=== PATIENT | male | born 1955 | race Caucasian/White ===

== ENCOUNTER 2020-12-06 15:24 | Emergency (ER) | payer OTHER, MEDICARE, SELFPAY ==
--- NOTE | 2020-12-06 15:32 | ED.FALL ---
HPI - Fall General Chief Complaint: Head Injury Stated Complaint: HEAD INJURY Source: patient Mode of arrival: ambulatory Limitations: no limitations History of Present Illness HPI Narrative: Patient is a 65-year-old male who presents complaining of head injury. Patient reports he was stung by a bee while working under a vehicle. Patient reports sitting up in injuring head. Patient reports then standing up and having possible syncopal episode where he fell. He denies chest pain or shortness of breath. Denies blurred vision. Patient is from [facility] and working in town. He denies all other injuries. He denies significant medical history. Patient denies pain at this time, denies taking [id number] medications prior to arrival. Patient reports that tetanus is up-to-date at this time. MD complaint: fall Related Data Home Medications Medication Instructions Recorded Confirmed alfuzosin [Uroxatral] mg PO 12/06/20 losartan 25 mg PO DAILY 12/06/20 12/06/20 Allergies Allergy/AdvReac Type Severity Reaction Status Date / Time No Known Allergies Allergy Verified 12/06/20 15:41 Review of Systems Review of Systems: CONSTITUTIONAL: Denies fever, chills, or sweats. EYES: Denies visual changes, redness, or discharge. ENT: Denies rhinorrhea, congestion, sore throat, or otalgia. CARDIOVASCULAR: Denies chest pain, palpitations, or edema. RESPIRATORY: Denies cough or dyspnea. GASTROINTESTINAL: Denies abdominal pain, nausea, vomiting, or diarrhea. GENITOURINARY: Denies dysuria or hematuria. SKIN: Laceration to scalp MUSCULOSKELETAL: Denies back pain, joint pain, or myalgia. NEUROLOGIC: Denies headache, numbness, dizziness, or weakness. PSYCHIATRIC: Denies anxiety or depression. [facility] Past Medical History Medical History (Updated 12/06/20 @ 16:06 by MENDEZ Poole) HTN (hypertension) Surgical History Surgical History (Updated 12/06/20 @ 15:55 by MENDEZ Poole) History of left knee replacement Family History Family History (Updated 12/06/20 @ 15:55 by MENDEZ Poole) Other Hypertension Social History Social History (Updated 12/06/20 @ 15:56 by MENDEZ Poole) Smoking status: Former smoker Alcohol intake: current Alcohol use details: Occasional Substance use: never Living arrangements: with family Occupation/Education: occupation Gender identity (if verbalized by the patient): Male Comments At the time of signature, I have reviewed and agree with nursing past medical, surgical, social, and family history unless otherwise noted. Please see nursing chart for further information. There is no relevant family history pertinent to the presenting complaint. Exam Narrative: GENERAL: Well-appearing, well-nourished, and in no acute distress. HEAD: Normocephalic, atraumatic. EYES: EOMI. No redness or drainage. Conjunctiva are normal. PERRLA ENT: Mucous membranes pink and moist. Nares clear. No rhinorrhea. TMs normal bilaterally. Throat normal. Uvula midline. NECK: AROM. Supple. No lymphadenopathy. No step-offs palpated. CHEST: No respiratory distress. Clear to auscultation. HEART: Regular rate and rhythm. No murmur appreciated. Normal peripheral pulses. MUSCULOSKELETAL: No bony tenderness. EXTREMITIES: Normal range of motion. No edema. SKIN: Approximate 3.5 cm irregular laceration to the left parietal scalp NEURO: No focal deficits. Alert and oriented x3. Gait steady. PSYCH: Normal affect. No signs of depression or anxiety. Course Vital Signs Vital signs: Vital Signs Temperature 37.0 C 12/06/20 15:41 Pulse Rate 83 12/06/20 15:41 Respiratory Rate 16 12/06/20 15:41 Blood Pressure 154/95 H 12/06/20 15:41 Pulse Oximetry 98 12/06/20 15:41 Temperature 37.0 C 12/06/20 15:45 Pulse Rate 83 12/06/20 15:45 Respiratory Rate 16 12/06/20 15:45 Blood Pressure 154/95 H 12/06/20 15:45 Pulse Oximetry 98
[2020-12-06 15:41] VITALS: BP 154/95; PULSE 83; RESP 16; TEMP 37; O2SAT 98
[2020-12-06 15:45] VITALS: BP 154/95; PULSE 83; RESP 16; TEMP 37; O2SAT 98
== END 2020-12-06 16:18 | disposition left against medical advice (07) ==
PROVIDERS: Emergency Provider Nurse Practitioner
DX: S09.0XXA Injury of blood vessels of head, not elsewhere classified, initial encounter (principal); S01.01XA Laceration without foreign body of scalp, initial encounter; W22.8XXA Striking against or struck by other objects, initial encounter; I10 Essential (primary) hypertension
CPT/HCPCS: 12002; 99212; G0463